=== PATIENT | male | born 1995 | race Caucasian/White ===

== ENCOUNTER 2023-05-02 10:39 | Inpatient (IN) | payer OTHER ==
[2023-05-02 11:49] VITALS: BMI 23.5
[2023-05-02] MEDS ORDERED: LOPERAMIDE HCL 2 MG CAPSULE PO PRN (15:42)
[2023-05-02] MEDS ORDERED: BENZONATATE 200 MG CAPSULE PO PRN (15:42)
[2023-05-02] MEDS ORDERED: BENZOCAINE/MENTHOL (CHLORASEPTIC ) LOZENGE MM PRN (15:42)
[2023-05-02] MEDS ORDERED: IBUPROFEN 400 MG TABLET (FP) PO PRN (15:42)
[2023-05-02] MEDS ORDERED: NALOXONE HCL 0.4 MG/ML VIAL IM PRN (15:42)
[2023-05-02] MEDS ORDERED: COLLOIDAL OATMEAL 1 BAR EACH TP PRN (15:42)
[2023-05-02] MEDS ORDERED: POLYETHYLENE GLYCOL (HEALTHYLAX) 3350 17 GM PACKET PO PRN (15:42)
[2023-05-02] MEDS ORDERED: NALOXONE HCL (KLOXXADO) 8 MG SPRAY NS PRN (15:42)
[2023-05-02] MEDS ORDERED: MAGNESIUM HYDROX 2400MG/30ML ORAL SUSPENSION 30 ML CUP PO PRN (15:42)
[2023-05-02] MEDS ORDERED: TUBERCULIN PPD 5 TU/0.1ML VIAL ID ONE ×2 (18:03→18:07)
[2023-05-02] MEDS: BACITRACIN ZINC 15 GM TUBE TOPICAL OINTMENT TP SCH (18:08)
[2023-05-02] MEDS: THIAMINE HCL 100 MG TABLET (FP) PO SCH (21:18)
[2023-05-02] MEDS: ACETAMINOPHEN 325 MG TABLET (FP) PO PRN (21:18)
[2023-05-02] MEDS: MELATONIN 5 MG TABLETS PO SCH (21:18)
[2023-05-02] MEDS: hydrOXYzine PAMOATE 25 MG CAPSULE (FP) PO PRN (21:18)
[2023-05-02] MEDS: MAG HYDROX/AL HYDROX/SIMETH 30 ML UNIT-DOSE CUP PO PRN (21:49)
[2023-05-02] MEDS: ALBUTEROL SO4 HFA INHALER IH PRN (23:09)
[2023-05-03] MEDS: IBUPROFEN 600 MG TABLET (FP) PO PRN ×2 (06:30→18:29)
[2023-05-03] MEDS: guaiFENesin 600 MG TABLET.ER (FP) PO PRN ×2 (06:30→21:33)
[2023-05-03] MEDS: ALBUTEROL SO4 HFA INHALER IH PRN ×3 (06:32→21:32)
[2023-05-03] MEDS: BACITRACIN ZINC 15 GM TUBE TOPICAL OINTMENT TP SCH (09:41)
[2023-05-03] MEDS: hydrOXYzine PAMOATE 25 MG CAPSULE (FP) PO PRN (09:41)
[2023-05-03] MEDS: PRENATAL VITAMINS W/ FOLIC ACID TABLET (FP) PO SCH (09:42)
[2023-05-03] MEDS: NICOTINE 21 MG/24 HOURS TOPICAL PATCH TD PRN (10:06)
[2023-05-03] MEDS: ACETAMINOPHEN 325 MG TABLET (FP) PO PRN (11:20)
[2023-05-03] MEDS: clonazePAM 0.5 MG ODT TABLETS SL SCH ×2 (11:34→21:29)
[2023-05-03] MEDS: risperiDONE 1 MG TABLET PO SCH ×2 (11:34→21:29)
[2023-05-03] MEDS: MAG HYDROX/AL HYDROX/SIMETH 30 ML UNIT-DOSE CUP PO PRN (11:37)
[2023-05-03 11:40] LABS: URINE APPEARANCE CLEAR; URINE BILIRUBIN NEGATIVE (NEGATIVE); URINE COLOR YELLOW; URINE GLUCOSE (UA) NEGATIVE (NEGATIVE); URINE KETONE NEGATIVE (NEGATIVE); URINE LEUK ESTERASE NEGATIVE (NEGATIVE); URINE NITRITE NEGATIVE (NEGATIVE); URINE PROTEIN NEGATIVE (NEGATIVE); URINE UROBILINOGEN 0.2 mg/dL (0.2-1.0)
[2023-05-03 11:41] LABS: HEMATOCRIT 38.6 % (35.4-49); MCH 28.9 pg (25.7-33.7); MCHC 33.7 g/dl (32.0-35.9); MEAN CELL VOLUME 85.7 fl (80-96); MEAN PLT VOLUME 9.8 fl (7.5-11.1); PLATELET COUNT 247 10^3/uL (134-434); RBC 4.51 M/mm3 (4.00-5.60); RDW 13.4 % (11.9-15.9); WHITE BLOOD COUNT 9.8 K/mm3 (4.0-10.0)
[2023-05-03] MEDS ORDERED: clonazePAM 0.5 MG ODT TABLETS SL SCH (11:45)
[2023-05-03 12:04] LABS: CHLORIDE 106 mmol/L (98-107); POTASSIUM 4.6 mmol/L (3.5-5.1); SODIUM 141 mmol/L (136-145)
[2023-05-03 12:10] LABS: CALCIUM 9.4 mg/dL (8.5-10.1)
[2023-05-03 12:11] LABS: ALBUMIN 3.7 g/dl (3.4-5.0); ANION GAP 5 mmol/L (4-13); CO2 29 mmol/L (21-32)
[2023-05-03 12:12] LABS: GLUCOSE,RANDOM 109 mg/dL (74-106)
[2023-05-03 12:13] LABS: SGPT/ALT 16 U/L (13-61)
[2023-05-03 12:14] LABS: CREATININE 0.9 mg/dL (0.55-1.3); SGOT/AST 11 U/L (15-37)
[2023-05-03 12:15] LABS: BILIRUBIN,TOTAL 0.2 mg/dL (0.2-1)
[2023-05-03 12:16] LABS: ALK PHOS 64 U/L (45-117)
[2023-05-03 12:23] LABS: BLOOD UREA NITROGEN 14.6 mg/dL (7-18)
[2023-05-03] MEDS ORDERED: risperiDONE 0.5 MG TABLET PO SCH (13:00)
[2023-05-03 13:03] LABS: SYPHILIS W/ RPR CONF NON-REACTIVE (NONREACTIVE)
[2023-05-03] MEDS: BENZTROPINE MESYLATE 0.5 MG TABLET (FP) PO SCH ×2 (13:32→21:29)
[2023-05-03] MEDS: MELATONIN 5 MG TABLETS PO SCH (21:28)
[2023-05-03] MEDS: GABAPENTIN 300 MG CAPSULE PO SCH (21:29)
[2023-05-03] MEDS: THIAMINE HCL 100 MG TABLET (FP) PO SCH (21:29)
[2023-05-04] MEDS: IBUPROFEN 600 MG TABLET (FP) PO PRN (06:29)
[2023-05-04] MEDS: GABAPENTIN 300 MG CAPSULE PO SCH ×2 (06:29→13:43)
[2023-05-04] MEDS: ALBUTEROL SO4 HFA INHALER IH PRN ×2 (06:31→10:29)
[2023-05-04] MEDS: guaiFENesin 600 MG TABLET.ER (FP) PO PRN (06:51)
[2023-05-04] MEDS: NICOTINE 21 MG/24 HOURS TOPICAL PATCH TD PRN (10:23)
[2023-05-04] MEDS: PRENATAL VITAMINS W/ FOLIC ACID TABLET (FP) PO SCH (10:23)
[2023-05-04] MEDS: NICOTINE POLACRILEX 4 MG GUM BUC PRN ×2 (10:23→12:59)
[2023-05-04] MEDS: BENZTROPINE MESYLATE 0.5 MG TABLET (FP) PO SCH (10:24)
[2023-05-04] MEDS: BACITRACIN ZINC 15 GM TUBE TOPICAL OINTMENT TP SCH (10:25)
[2023-05-04] MEDS: clonazePAM 0.5 MG ODT TABLETS SL SCH (10:26)
[2023-05-04] MEDS: risperiDONE 1 MG TABLET PO SCH (10:54)
[2023-05-04 17:34] VITALS: BP 114/75; PULSE 90; RESP 16; TEMP 97.8
== END 2023-05-04 16:49 | disposition left against medical advice (07) | DRG 770 ==
LOC: YASAS 10:39 → Y3E 17:43
PROVIDERS: ADMIT Allergy & Immunology; ATTEND Psychiatry & Neurology Pain Medicine
PROC: HZ42ZZZ Group Counseling for Substance Abuse Treatment, Cognitive-Behavioral (ICD-10-PCS; principal; 2023-05-02)
DX: F10.20 Alcohol dependence, uncomplicated (principal); F14.20 Cocaine dependence, uncomplicated; F12.20 Cannabis dependence, uncomplicated; F17.210 Nicotine dependence, cigarettes, uncomplicated; F25.9 Schizoaffective disorder, unspecified; F41.1 Generalized anxiety disorder; F43.10 Post-traumatic stress disorder, unspecified; J45.909 Unspecified asthma, uncomplicated; R94.31 Abnormal electrocardiogram [ECG] [EKG]; R23.4 Changes in skin texture; Z56.0 Unemployment, unspecified; Z59.00 Homelessness unspecified
CPT/HCPCS: 36415; 80053; 80307; 81003; 82140; 85027; 86780; 86803; 87635; 93005; 93010

== ENCOUNTER 2023-06-15 12:40 | Inpatient (IN) | payer OTHER ==
[2023-06-15 13:30] VITALS: BMI 23.4
[2023-06-15] MEDS ORDERED: NALOXONE HCL 0.4 MG/ML VIAL IM PRN (14:20)
[2023-06-15] MEDS ORDERED: POLYETHYLENE GLYCOL (HEALTHYLAX) 3350 17 GM PACKET PO PRN (14:20)
[2023-06-15] MEDS ORDERED: MAG HYDROX/AL HYDROX/SIMETH 30 ML UNIT-DOSE CUP PO PRN (14:20)
[2023-06-15] MEDS ORDERED: NALOXONE HCL (KLOXXADO) 8 MG SPRAY NS PRN (14:20)
[2023-06-15] MEDS ORDERED: DICYCLOMINE HCL 10 MG CAPSULE PO PRN (14:20)
[2023-06-15] MEDS ORDERED: BISMUTH SUBSALICYLATE 524 MG/30 ML PO PRN (14:20)
[2023-06-15] MEDS ORDERED: LOPERAMIDE HCL 2 MG CAPSULE PO PRN (14:20)
[2023-06-15] MEDS ORDERED: BENZONATATE 200 MG CAPSULE PO PRN (14:20)
[2023-06-15] MEDS ORDERED: guaiFENesin 600 MG TABLET.ER (FP) PO PRN (14:20)
[2023-06-15] MEDS ORDERED: MAGNESIUM HYDROX 2400MG/30ML ORAL SUSPENSION 30 ML CUP PO PRN (14:20)
[2023-06-15] MEDS ORDERED: IBUPROFEN 400 MG TABLET (FP) PO PRN (14:20)
[2023-06-15] MEDS ORDERED: ONDANSETRON *ODT* 4 MG TABLET SL PRN (14:20)
[2023-06-15] MEDS ORDERED: BENZOCAINE/MENTHOL (CHLORASEPTIC ) LOZENGE MM PRN (14:20)
[2023-06-15] MEDS ORDERED: ALBUTEROL SO4 HFA INHALER IH PRN (15:54)
[2023-06-15] MEDS: hydrOXYzine PAMOATE 25 MG CAPSULE (FP) PO PRN (16:56)
[2023-06-15] MEDS: METHOCARBAMOL 500 MG TABLET PO PRN (16:56)
[2023-06-15] MEDS: NICOTINE POLACRILEX 2 MG GUM BUC PRN (17:23)
[2023-06-15] MEDS: ALBUTEROL SO4 HFA INHALER IH PRN (17:27)
[2023-06-15] MEDS: MELATONIN 5 MG TABLETS PO SCH (22:13)
[2023-06-15] MEDS: THIAMINE HCL 100 MG TABLET (FP) PO SCH (22:13)
[2023-06-16] MEDS: IBUPROFEN 600 MG TABLET (FP) PO PRN (08:23)
[2023-06-16] MEDS: PRENATAL VITAMINS W/ FOLIC ACID TABLET (FP) PO SCH (10:17)
[2023-06-16] MEDS: NICOTINE 21 MG/24 HOURS TOPICAL PATCH TD SCH (10:17)
[2023-06-16 11:34] LABS: HEMATOCRIT 33.1 % (35.4-49); HEMOGLOBIN 10.9 GM/dL (11.7-16.9); MCH 27.9 pg (25.7-33.7); MCHC 32.9 g/dl (32.0-35.9); MEAN CELL VOLUME 84.7 fl (80-96); MEAN PLT VOLUME 10.4 fl (7.5-11.1); PLATELET COUNT 222 10^3/uL (134-434); RBC 3.91 M/mm3 (4.00-5.60); RDW 13.6 % (11.9-15.9); WHITE BLOOD COUNT 7.7 K/mm3 (4.0-10.0)
[2023-06-16 11:37] LABS: CHLORIDE 107 mmol/L (98-107); POTASSIUM 4.7 mmol/L (3.5-5.1); SODIUM 140 mmol/L (136-145)
[2023-06-16 11:40] LABS: ALBUMIN 3.1 g/dl (3.4-5.0); BLOOD UREA NITROGEN 14.1 mg/dL (7-18); GLUCOSE,RANDOM 85 mg/dL (74-106)
[2023-06-16 11:43] LABS: CREATININE 0.8 mg/dL (0.55-1.3); SGOT/AST 14 U/L (15-37); SGPT/ALT 24 U/L (13-61)
[2023-06-16 11:44] LABS: ANION GAP 1 mmol/L (4-13); BILIRUBIN,TOTAL 0.2 mg/dL (0.2-1); CO2 32 mmol/L (21-32); TOT PROT 6.2 g/dl (6.4-8.2)
[2023-06-16 11:46] LABS: ALK PHOS 46 U/L (45-117)
[2023-06-16] MEDS ORDERED: BENZTROPINE MESYLATE 2 MG TABLET PO SCH (12:00)
[2023-06-16] MEDS ORDERED: risperiDONE 0.5 MG TABLET PO SCH (12:00)
[2023-06-16] MEDS: BENZTROPINE MESYLATE 1 MG TABLET PO SCH (12:10)
[2023-06-16] MEDS: risperiDONE 1 MG TABLET PO SCH (12:10)
[2023-06-16] MEDS: GABAPENTIN 400 MG CAPSULE PO SCH (13:28)
[2023-06-16] MEDS: ACETAMINOPHEN 325 MG TABLET (FP) PO PRN (13:31)
[2023-06-16] MEDS ORDERED: BACITRACIN ZINC 15 GM TUBE TOPICAL OINTMENT TP PRN (19:03)
[2023-06-16] MEDS: SUVOREXANT 10 MG TABLET PO PRN (21:47)
[2023-06-16] MEDS: BACITRACIN 0.9 GM PACKET TP PRN (21:48)
[2023-06-16 21:52] VITALS: TEMP 97.7
[2023-06-17 09:40] VITALS: BP 114/59; PULSE 81; RESP 18
== END 2023-06-17 09:50 | disposition home or self-care (01) | DRG 774 ==
LOC: YASAS 12:40 → Y6N 14:26
PROVIDERS: ADMIT Allergy & Immunology; ATTEND Surgery
PROC: HZ2ZZZZ Detoxification Services for Substance Abuse Treatment (ICD-10-PCS; principal; 2023-06-15)
DX: F10.20 Alcohol dependence, uncomplicated (principal); F14.10 Cocaine abuse, uncomplicated; F12.20 Cannabis dependence, uncomplicated; F17.210 Nicotine dependence, cigarettes, uncomplicated; F25.0 Schizoaffective disorder, bipolar type; F19.280 Other psychoactive substance dependence with psychoactive substance-induced anxiety disorder; F19.282 Other psychoactive substance dependence with psychoactive substance-induced sleep disorder; F43.10 Post-traumatic stress disorder, unspecified; Z59.00 Homelessness unspecified
CPT/HCPCS: 36415; 80053; 80307; 85027; 86780; 87635; 87811; 93005; 93010

== ENCOUNTER 2023-12-23 08:30 | Inpatient (IN) | payer OTHER ==
[2023-12-23 08:56] VITALS: BMI 24.3
[2023-12-23] MEDS ORDERED: POLYETHYLENE GLYCOL (HEALTHYLAX) 3350 17 GM PACKET PO PRN (09:48)
[2023-12-23] MEDS ORDERED: BENZONATATE 200 MG CAPSULE PO PRN (09:48)
[2023-12-23] MEDS ORDERED: BENZOCAINE/MENTHOL (CHLORASEPTIC ) LOZENGE MM PRN (09:48)
[2023-12-23] MEDS ORDERED: MAGNESIUM HYDROX 2400MG/30ML ORAL SUSPENSION 30 ML CUP PO PRN (09:48)
[2023-12-23] MEDS ORDERED: NALOXONE (NARCAN) HCL 4 MG/0.1 ML SPRAY NS PRN (09:48)
[2023-12-23] MEDS ORDERED: guaiFENesin 600 MG TABLET.ER (FP) PO PRN (09:48)
[2023-12-23] MEDS ORDERED: NALOXONE HCL 0.4 MG/ML VIAL IM PRN (09:48)
[2023-12-23] MEDS ORDERED: LOPERAMIDE HCL 2 MG CAPSULE PO PRN (09:48)
[2023-12-23] MEDS ORDERED: IBUPROFEN 600 MG TABLET (FP) PO PRN (09:48)
[2023-12-23] MEDS: PRENATAL VITAMINS W/ FOLIC ACID TABLET (FP) PO SCH (10:38)
[2023-12-23] MEDS: hydrOXYzine PAMOATE 25 MG CAPSULE (FP) PO PRN (17:42)
[2023-12-23] MEDS: DICYCLOMINE HCL 10 MG CAPSULE PO PRN (17:42)
[2023-12-23] MEDS: ONDANSETRON *ODT* 4 MG TABLET SL PRN (17:42)
[2023-12-23] MEDS: METHOCARBAMOL 500 MG TABLET PO PRN (17:42)
[2023-12-23] MEDS: MELATONIN 5 MG TABLETS PO SCH (21:59)
[2023-12-23] MEDS: THIAMINE 100 MG TABLET PO SCH (21:59)
[2023-12-23] MEDS: IBUPROFEN 400 MG TABLET (FP) PO PRN (21:59)
[2023-12-24] MEDS: MAG HYDROX/AL HYDROX/SIMETH 30 ML UNIT-DOSE CUP PO PRN (03:51)
[2023-12-24] MEDS: diazePAM 5 MG TABLET PO SCH (10:12)
[2023-12-24] MEDS: NICOTINE 21 MG/24 HOURS TOPICAL PATCH TD SCH (10:51)
[2023-12-24 11:32] LABS: POTASSIUM 3.8 mmol/L (3.5-5.1)
[2023-12-24 11:37] LABS: ALBUMIN 4.3 g/dl (3.4-5.0)
[2023-12-24 11:39] LABS: CREATININE 0.9 mg/dL (0.55-1.3)
[2023-12-24 11:40] LABS: BILIRUBIN,TOTAL 0.7 mg/dL (0.2-1); TOT PROT 7.5 g/dl (6.4-8.2)
[2023-12-24 11:52] LABS: HEMATOCRIT 43.5 % (35.4-49); HEMOGLOBIN 14.3 GM/dL (11.7-16.9); MCH 27.9 pg (25.7-33.7); MCHC 32.9 g/dl (32.0-35.9); MEAN CELL VOLUME 84.6 fl (80-96); MEAN PLT VOLUME 9.8 fl (7.5-11.1); PLATELET COUNT 299 10^3/uL (134-434); RBC 5.14 M/mm3 (4.00-5.60); RDW 13.2 % (11.9-15.9); WHITE BLOOD COUNT 14.2 K/mm3 (4.0-10.0)
[2023-12-24] MEDS: GABAPENTIN 400 MG CAPSULE PO SCH (15:09)
[2023-12-24] MEDS: BENZTROPINE MESYLATE 1 MG TABLET PO SCH (15:10)
[2023-12-24] MEDS: risperiDONE 1 MG TABLET PO SCH (22:19)
[2023-12-24] MEDS: SUVOREXANT 10 MG TABLET PO PRN (22:22)
[2023-12-25] MEDS: methaDONE HCL 10 MG TABLET (FOR DETOX USE ONLY) PO ONE (08:52)
[2023-12-25] MEDS: TRIMETHOBENZAMIDE HCL 200MG/2ML INJ IM ONE (08:53)
[2023-12-25] MEDS: BUPRENORPHINE/NALOXONE 0.5 MG/0.125 MG FILM SL ONE ×2 (08:53→22:43)
[2023-12-25] MEDS: cloNIDine HCL 0.1 MG TABLET PO SCH (10:03)
[2023-12-25 11:53] LABS: BASO % 0.2 % (0-2.0); EOS % 1.1 % (0-4.5); HEMATOCRIT 45.6 % (35.4-49); HEMOGLOBIN 15.3 GM/dL (11.7-16.9); LYMPH % 25.9 % (8-40); MCH 28.1 pg (25.7-33.7); MCHC 33.6 g/dl (32.0-35.9); MEAN CELL VOLUME 83.5 fl (80-96); MEAN PLT VOLUME 9.6 fl (7.5-11.1); MONO % 9.9 % (3.8-10.2); NEUT % 62.9 % (42.8-82.8); PLATELET COUNT 305 10^3/uL (134-434); RBC 5.46 M/mm3 (4.00-5.60); RDW 13.2 % (11.9-15.9); WHITE BLOOD COUNT 11.8 K/mm3 (4.0-10.0)
[2023-12-25] MEDS: BISMUTH SUBSALICYLATE 262 MG/15 ML BTL PO PRN (15:42)
[2023-12-26] MEDS: diazePAM 5 MG TABLET PO SCH (05:43)
[2023-12-26] MEDS: BUPRENORPHINE/NALOXONE 0.5 MG/0.125 MG FILM SL SCH (09:43)
[2023-12-26] MEDS: diazePAM 5 MG TABLET PO PRN (17:39)
[2023-12-27] MEDS: diazePAM 5 MG TABLET PO SCH (05:28)
[2023-12-27] MEDS: BUPRENORPHINE/NALOXONE 2 MG/0.5 MG FILM PACKET SL SCH (10:25)
[2023-12-27] MEDS: methaDONE HCL 10 MG TABLET (FOR DETOX USE ONLY) PO ONE (10:28)
[2023-12-27] MEDS: NICOTINE POLACRILEX 2 MG GUM BUC PRN (15:54)
[2023-12-28] MEDS: diazePAM 5 MG TABLET PO ONE (05:29)
[2023-12-28] MEDS: ACETAMINOPHEN 325 MG TABLET (FP) PO PRN (07:07)
[2023-12-28] MEDS: diazePAM 5 MG TABLET PO SCH (09:47)
[2023-12-28] MEDS: BUPRENORPHINE/NALOXONE 4 MG/1 MG FILM PACKET SL SCH (09:48)
[2023-12-29 06:20] VITALS: RESP 16
[2023-12-29] MEDS: BUPRENORPHINE/NALOXONE 8 MG/2 MG FILM PACKET SL SCH (09:20)
[2023-12-29] MEDS: methaDONE HCL 10 MG TABLET (FOR DETOX USE ONLY) PO ONE (09:20)
[2023-12-29] MEDS: diazePAM 5 MG TABLET PO SCH (09:20)
[2023-12-29] MEDS: BENZOCAINE 20 % GEL TUBE MM PRN (17:36)
[2023-12-30 09:16] VITALS: BP 145/78; PULSE 110; TEMP 98
[2023-12-30] MEDS: BUPRENORPHINE/NALOXONE 8 MG/2 MG FILM PACKET SL SCH (10:16)
== END 2023-12-30 10:20 | disposition home or self-care (01) | DRG 773 ==
LOC: YASAS 08:30 → Y6N 10:27
PROVIDERS: ADMIT Allergy & Immunology; ATTEND Surgery
PROC: HZ2ZZZZ Detoxification Services for Substance Abuse Treatment (ICD-10-PCS; principal; 2023-12-23)
DX: F10.230 Alcohol dependence with withdrawal, uncomplicated (principal); F11.20 Opioid dependence, uncomplicated; F14.20 Cocaine dependence, uncomplicated; F12.20 Cannabis dependence, uncomplicated; F17.210 Nicotine dependence, cigarettes, uncomplicated; F25.0 Schizoaffective disorder, bipolar type; F31.9 Bipolar disorder, unspecified; F41.9 Anxiety disorder, unspecified; F19.282 Other psychoactive substance dependence with psychoactive substance-induced sleep disorder; F19.280 Other psychoactive substance dependence with psychoactive substance-induced anxiety disorder; F19.24 Other psychoactive substance dependence with psychoactive substance-induced mood disorder; Z59.01 Sheltered homelessness; F32.A Depression, unspecified; F43.10 Post-traumatic stress disorder, unspecified; J45.20 Mild intermittent asthma, uncomplicated; R76.11 Nonspecific reaction to tuberculin skin test without active tuberculosis
CPT/HCPCS: 36415; 71046-TC-FY; 80053; 80305; 80307; 85025; 85027; 86780; 93005; 93010; Q0162